=== PATIENT | female | born 1975 | race Caucasian/White ===

== ENCOUNTER 2023-05-03 18:03 | Inpatient (IN) | payer MEDICAID ==
[~2023-05-03] VITALS: Ht 160 cm; Wt 89.8 kg
[2023-05-03 18:41] VITALS: BP_SYST 134; PULSE 74; RESP 17; TEMP 97.6; O2SAT 97
[2023-05-03] MEDS ORDERED: NACL 0.9% 2,000 ML IV ONE (19:00)
[2023-05-03 19:54] LABS: BASOPHILS % (AUTO) 0.5 % (0.0-2.0); HEMATOCRIT 35.5 % (36-48); HEMOGLOBIN 11.8 g/dL (12.0-16.0); LYMPHOCYTES # (AUTO) 0.7 K/uL (1.0-5.5); LYMPHOCYTES % (AUTO) 9.2 % (20.5-51.5); MEAN CORPUSCULAR HEMOGLOBIN 30 pg (27-31); MEAN CORPUSCULAR HGB CONC 33 % (32-36); MEAN CORPUSCULAR VOLUME 91 fL (79.0-98.0); MONOCYTES # (AUTO) 0.5 K/uL (0.0-1.0); MONOCYTES % (AUTO) 6.9 % (1.7-9.3); NEUTROPHILS # (AUTO) 6.5 K/uL (1.8-7.7); NEUTROPHILS % (AUTO) 83.4 % (40.0-70.0); PLATELET COUNT (AUTO) 316 K/uL (130-430); RED BLOOD CELL COUNT(AUTO) 3.92 MIL/uL (4.2-6.2); RED CELL DISTRIBUTION WIDTH 13.5 % (9.0-15.0); WHITE BLOOD COUNT (AUTO) 7.7 K/uL (4.8-10.8)
[2023-05-03 20:02] LABS: CALCIUM 8.7 mg/dL (8.4-11.0); CREATININE 0.91 mg/dL (0.55-1.30); POTASSIUM 3.1 mmol/L (3.5-5.1)
[2023-05-03 20:06] LABS: ALBUMIN 3.6 g/dL (3.4-4.8); TOTAL BILIRUBIN 1.8 mg/dL (0.0-1.0); TOTAL PROTEIN, SERUM 6.9 g/dL (6.4-8.3)
[2023-05-03] MEDS ORDERED: POTASSIUM CHLORIDE 20 MEQ TAB.PRT.SR PO ONE (20:15)
[2023-05-03 20:35] LABS: BILIRUBIN,URINE NEGATIVE (NEGATIVE); BLOOD, URINE 3+ (NEGATIVE); CLARITY/URINE CLEAR (CLEAR); COLOR,URINE YELLOW (YELLOW); GLUCOSE,URINE NEGATIVE (NEGATIVE); KETONES,URINE NEGATIVE (NEGATIVE); LEUKOCYTE ESTERASE ,URINE 1+ (NEGATIVE); NITRITE, URINE NEGATIVE (NEGATIVE); PROTEIN URINE NEGATIVE (NEGATIVE); UROBILINOGEN,URINE 0.2 (0.2-1.0)
[2023-05-03 20:42] LABS: BACTERIA,URINE FEW /HPF (None Seen); MUCUS,URINE None Seen /LPF (None Seen); RBC,URINE NONE SEEN /HPF (0-3)
[2023-05-03] MEDS ORDERED: KCL 40 mEq in 100 mL (PREMIX) 100 ML IV ONE (20:45)
[2023-05-03] MEDS ORDERED: KCL 20 mEq in 100 mL (PREMIX) 200 ML IV ONE (21:09)
[2023-05-03] MEDS ORDERED: ACETAMINOPHEN 500 MG TABLET PO ONE (23:00)
[2023-05-03 23:56] LABS: BARBITURATE, URINE NEGATIVE (NEG <=200); BENZODIAZEPINE, URINE NEGATIVE (NEG <=150); CANNABINOID, URINE NEGATIVE (NEG <=50); COCAINE, URINE NEGATIVE (NEG <=150); METHAMPHETAMINES SCREEN,URINE NEGATIVE (NEG <=500); OPIATE, URINE NEGATIVE (NEG <=100); PHENCYCLIDINE SCREEN,URINE NEGATIVE (NEG <=25); UR TRICYCLIC ANTIDEPRESSANTS NEGATIVE (NEG <=300); URINE AMPHETAMINE NEGATIVE (NEG <=500); URINE METHADONE NEGATIVE (NEG <=200); URINE OXYCODONE SCREEN NEGATIVE (NEG <=100); URINE PROPOXYPHENE SCREEN NEGATIVE (NEG <=300)
[2023-05-04] MEDS ORDERED: MORPHINE 4 MG INJ. 4 MG/ML VIAL IVP ONE (01:30)
[2023-05-04] MEDS ORDERED: HYDROcodone/ACETAMIN 10-325 MG TAB PO PRN (07:30)
[2023-05-04] MEDS ORDERED: HYDROcodone/ACETAMIN 5-325 MG TAB (NORCO/ VICODIN) PO PRN (07:30)
[2023-05-04] MEDS ORDERED: LORazepam 2 MG/ML VIAL IVP PRN (07:30)
[2023-05-04] MEDS ORDERED: NALOXONE HCL 0.4 MG/ML AMP (NARCAN) IVP PRN ×2 (07:30)
[2023-05-04] MEDS ORDERED: ONDANSETRON HCL 4 MG/2 ML VIAL IVP PRN (07:30)
[2023-05-04] MEDS ORDERED: ACETAMINOPHEN 325 MG TABLET PO PRN (07:45)
[2023-05-04] MEDS ORDERED: DICYCLOMINE HCL 10 MG CAPSULE PO ONE (10:00)
[2023-05-04 11:15] VITALS: BP_SYST 105; PULSE 68; RESP 18; TEMP 97.3; O2SAT 96
[2023-05-04 11:20] VITALS: BP_SYST 105; PULSE 68; RESP 18; TEMP 97.3; O2SAT 96
[2023-05-04 13:00] VITALS: BP_SYST 109; PULSE 75; RESP 18; TEMP 96.8; O2SAT 97
[2023-05-04] MEDS: cefTRIAXone 1 GM IVPB PREMIX 50 ML IV SCH (13:24)
[2023-05-04 16:56] VITALS: BP_SYST 101; PULSE 53; RESP 17; TEMP 98.4; O2SAT 99
[2023-05-04 20:00] VITALS: BP_SYST 95; PULSE 58; RESP 18; TEMP 98.1; O2SAT 100
[2023-05-04] MEDS: DICYCLOMINE HCL 10 MG CAPSULE PO SCH (20:11)
[2023-05-05 00:05] VITALS: BP_SYST 107; PULSE 47; RESP 18; TEMP 96.5; O2SAT 100
[2023-05-05 06:06] LABS: BASOPHILS % (AUTO) 0.9 % (0.0-2.0); EOSINOPHILS # (AUTO) 0.1 K/uL (0.0-0.4); EOSINOPHILS % (AUTO) 3.1 % (0.0-4.0); HEMATOCRIT 34.2 % (36-48); HEMOGLOBIN 11.4 g/dL (12.0-16.0); LYMPHOCYTES % (AUTO) 26.3 % (20.5-51.5); MEAN CORPUSCULAR HEMOGLOBIN 31 pg (27-31); MEAN CORPUSCULAR HGB CONC 33 % (32-36); MEAN CORPUSCULAR VOLUME 92 fL (79.0-98.0); MONOCYTES # (AUTO) 0.3 K/uL (0.0-1.0); MONOCYTES % (AUTO) 8.3 % (1.7-9.3); NEUTROPHILS # (AUTO) 2.2 K/uL (1.8-7.7); NEUTROPHILS % (AUTO) 61.4 % (40.0-70.0); PLATELET COUNT (AUTO) 280 K/uL (130-430); RED BLOOD CELL COUNT(AUTO) 3.71 MIL/uL (4.2-6.2); WHITE BLOOD COUNT (AUTO) 3.6 K/uL (4.8-10.8)
[2023-05-05 06:20] LABS: PROTHROMBIN TIME 10.3 SECS (9.5-12.5)
[2023-05-05 06:35] LABS: ALBUMIN 3.1 g/dL (3.4-4.8); CALCIUM 8.4 mg/dL (8.4-11.0); CREATININE 0.78 mg/dL (0.55-1.30); PHOSPHORUS 3.8 mg/dL (2.7-4.5); POTASSIUM 3.9 mmol/L (3.5-5.1); TOTAL BILIRUBIN 0.7 mg/dL (0.0-1.0); TOTAL PROTEIN, SERUM 6.4 g/dL (6.4-8.3)
[2023-05-05 08:00] VITALS: BP_SYST 109; PULSE 49; RESP 16; TEMP 97.4; O2SAT 99
[2023-05-05] MEDS: ACETAMINOPHEN 325 MG TABLET PO PRN ×2 (08:54→21:07)
[2023-05-05] MEDS: DICYCLOMINE HCL 10 MG CAPSULE PO SCH ×2 (08:55→21:07)
[2023-05-05] MEDS: cefTRIAXone 1 GM IVPB PREMIX 50 ML IV SCH (11:04)
[2023-05-05 11:07] VITALS: BP_SYST 111; PULSE 50; RESP 17; TEMP 98.2; O2SAT 100
[2023-05-05 12:05] LABS: SERUM HCG (QUALITATIVE) NEGATIVE (NEGATIVE)
[2023-05-05] MEDS ORDERED: BISACODYL 5 MG TABLET.DR (DULCOLAX) PO ONE (17:00)
[2023-05-05 17:17] VITALS: BP_SYST 102; PULSE 47; RESP 18; TEMP 98.8; O2SAT 100
[2023-05-05] MEDS ORDERED: GOLYTELY / COLYTE SOLUTION 4 LITERS PO ONE (18:00)
[2023-05-05 20:00] VITALS: BP_SYST 104; PULSE 56; RESP 20; TEMP 96.5; O2SAT 99
[2023-05-06] VITALS (8 sets, daily range): BP systolic 93–105; PULSE 49–60; RESP 17–20; TEMP 96.6–97.8; O2SAT 94–100
[2023-05-06 04:32] LABS: BASOPHILS % (AUTO) 0.8 % (0.0-2.0); EOSINOPHILS # (AUTO) 0.1 K/uL (0.0-0.4); EOSINOPHILS % (AUTO) 2.4 % (0.0-4.0); HEMATOCRIT 32.8 % (36-48); HEMOGLOBIN 11.2 g/dL (12.0-16.0); LYMPHOCYTES # (AUTO) 1.3 K/uL (1.0-5.5); LYMPHOCYTES % (AUTO) 31.8 % (20.5-51.5); MEAN CORPUSCULAR HEMOGLOBIN 31 pg (27-31); MEAN CORPUSCULAR HGB CONC 34 % (32-36); MEAN CORPUSCULAR VOLUME 91 fL (79.0-98.0); MONOCYTES # (AUTO) 0.4 K/uL (0.0-1.0); NEUTROPHILS # (AUTO) 2.2 K/uL (1.8-7.7); PLATELET COUNT (AUTO) 288 K/uL (130-430); RED BLOOD CELL COUNT(AUTO) 3.58 MIL/uL (4.2-6.2); RED CELL DISTRIBUTION WIDTH 14.2 % (9.0-15.0)
[2023-05-06 04:50] LABS: ALBUMIN 3.1 g/dL (3.4-4.8); CALCIUM 8.3 mg/dL (8.4-11.0); CREATININE 0.72 mg/dL (0.55-1.30); POTASSIUM 3.3 mmol/L (3.5-5.1); TOTAL BILIRUBIN 0.5 mg/dL (0.0-1.0); TOTAL PROTEIN, SERUM 6.3 g/dL (6.4-8.3)
[2023-05-06 05:08] LABS: PROTHROMBIN TIME 10.4 SECS (9.5-12.5)
[2023-05-06 05:11] LABS: ERYTHROCYTE SEDIMENTATION RATE 7 MM/HR (0-20)
[2023-05-06] MEDS ORDERED: MEPERIDINE 100 MG INJ. 100 MG/ML VIAL ONE (07:48)
[2023-05-06] MEDS ORDERED: MIDAZOLAM HCL 5 MG/5 ML VIAL ONE (07:48)
[2023-05-06] MEDS: DICYCLOMINE HCL 10 MG CAPSULE PO SCH (08:55)
[2023-05-06] MEDS ORDERED: MORPHINE 2 MG/ML INJ. SYRINGE IVP ONE (10:45)
[2023-05-06] MEDS ORDERED: POTASSIUM CHLORIDE 20 MEQ TAB.PRT.SR PO ONE (10:45)
[2023-05-06] MEDS ORDERED: NALOXONE HCL 0.4 MG/ML AMP (NARCAN) IVP PRN (10:45)
[2023-05-06] MEDS: cefTRIAXone 1 GM IVPB PREMIX 50 ML IV SCH (10:59)
[2023-05-06] MEDS ORDERED: PANTOPRAZOLE SODIUM 40 MG TAB PO ONE (14:30)
[2023-05-07] MEDS ORDERED: POLYETHYLENE GLYCOL 3350, 17 GM/ POWD.PACK PO SCH (09:00)
[2023-05-07] MEDS ORDERED: PANTOPRAZOLE SODIUM 40 MG TAB PO SCH (09:00)
== END 2023-05-06 18:51 | disposition home or self-care (01) ==
LOC: SED 18:03 → STU 05-04 05:59 → SMU 05-06 10:46
PROVIDERS: ADMIT Preventive Medicine Preventive Medicine/Occupational Environmental Medicine; ATTEND Preventive Medicine Preventive Medicine/Occupational Environmental Medicine
PROC: 0DJD8ZZ Inspection of Lower Intestinal Tract, Via Natural or Artificial Opening Endoscopic (ICD-10-PCS; 2023-05-06)
PROC: 0DB98ZX Excision of Duodenum, Via Natural or Artificial Opening Endoscopic, Diagnostic (ICD-10-PCS; principal; 2023-05-06 08:00)
PROC: 0DB78ZX Excision of Stomach, Pylorus, Via Natural or Artificial Opening Endoscopic, Diagnostic (ICD-10-PCS; 2023-05-06 08:00)
DX: K80.20 Calculus of gallbladder without cholecystitis without obstruction (principal); G93.41 Metabolic encephalopathy; E44.0 Moderate protein-calorie malnutrition; R65.10 Systemic inflammatory response syndrome (SIRS) of non-infectious origin without acute organ dysfunction; K76.0 Fatty (change of) liver, not elsewhere classified; E83.51 Hypocalcemia; E87.1 Hypo-osmolality and hyponatremia; E88.09 Other disorders of plasma-protein metabolism, not elsewhere classified; K29.70 Gastritis, unspecified, without bleeding; K64.8 Other hemorrhoids; K57.90 Diverticulosis of intestine, part unspecified, without perforation or abscess without bleeding; D64.9 Anemia, unspecified; F41.0 Panic disorder [episodic paroxysmal anxiety]; E87.5 Hyperkalemia; E87.6 Hypokalemia; K76.9 Liver disease, unspecified; K59.09 Other constipation; K44.9 Diaphragmatic hernia without obstruction or gangrene; Z88.0 Allergy status to penicillin; Z79.899 Other long term (current) drug therapy; Z68.35 Body mass index [BMI] 35.0-35.9, adult
CPT/HCPCS: 36415; 43239; 45378; 70450-TC; 72131; 74181; 76376; 76700-TC; 80053; 80307; 81000; 82140; 83735; 84100; 84703; 85025; 85610-TC; 85651-TC; 86886; 86900; 86901; 87081; 87086; 88305; 88312; 88313; 93005; 93306; 96361; 96365; 96366; 99285; G0378; J0696; J2175; J2250; J2270; J2405; J3480; J7050; Q9967